=== PATIENT | male | born 1980 | race Native Hawaiian/Other Pacific Islander ===

== ENCOUNTER 2022-10-26 03:16 | Emergency (ER) | payer SELFPAY ==
[~2022-10-26] VITALS: Ht 165.1 cm; Wt 111.1 kg
--- NOTE | 2022-10-26 03:45 | ED General ---
General Stated Complaint: FEVER,COUGH,CONGESTION,SORE THROAT Source of Information: Patient Exam Limitations: No Limitations History of Present Illness Date Seen by Provider: Oct 26, 2022 Time Seen by Provider: 03:33 Initial Comments Here with report of fevers, chills, body aches, sore throat and cough. Did have 1 episode of vomiting with cough. Noticed all of this was worse tonight at work and so ended up having to leave. He came here for evaluation due to concerns of COVID or other detectable viral illnesses. Denies previous surgeries or other medical problems. He has not had anything for the aches. Currently afebrile. Denies nausea currently. Timing/Duration: 24 Hours Severity: Mild, Moderate Associated Systoms: Cough, Fever/Chills, Nausea/Vomiting Allergies and Home Medications Allergies Coded Allergies: No Known Drug Allergies (Unverified , 10/26/22) Patient Home Medication List Home Medication List Reviewed: Yes Review of Systems Review of Systems Constitutional: chills, fever EENTM: nose congestion, throat pain Respiratory: cough; No short of breath Gastrointestinal: nausea, vomiting Musculoskeletal: muscle pain Psychiatric/Neurological: Denies Headache Past Xpmutus-Ehewul-Ewkqyy Hx Patient Social History Tobacco Use?: No Use of E-Cig and/or Vaping dev: No Substance use?: No Alcohol Use?: No Past Medical History Surgeries: No Cardiac: No Neurological: No Genitourinary: No Family Medical History Reviewed Nursing Family Hx Physical Exam Vital Signs Vital Signs - First Documented 10/26/22 03:32 Temp 36.9 Pulse 104 Resp 20 B/P (MAP) 139/95 (110) Pulse Ox 96 O2 Delivery Room Air Capillary Refill : Height, Weight, BMI Height: '" Weight: lbs. oz. kg; BMI Method: General Appearance: No Apparent Distress, WD/WN HEENT: TMs Normal, Pharyngeal Erythema; No Tonsillar Exudate Neck: Non Tender, Supple Respiratory: Lungs Clear, Normal Breath Sounds Cardiovascular: Regular Rate, Rhythm, No Murmur Neurologic/Psychiatric: Alert, Oriented x3 Skin: Normal Color, Warm/Dry Progress/Results/Core Measures Suspected Sepsis SIRS Temperature: Pulse: Respiratory Rate: Blood Pressure / Mean: Results/Orders Lab Results Laboratory Tests Test 10/26/22 03:36 Range/Units Influenza Type A (RT-PCR) Not Detected Not Detecte Influenza Type B (RT-PCR) Not Detected Not Detecte SARS-CoV-2 RNA (RT-PCR) Not Detected Not Detecte Group A Streptococcus Screen NEGATIVE NEGATIVE My Orders Orders - JESSE COLEY MD Rapid Strep A Screen (10/26/22 03:39) Influenza A And B By Pcr (10/26/22 03:39) Covid 19 Inhouse Test (10/26/22 03:39) Vital Signs/I&O 10/26/22 03:32 Temp 36.9 Pulse 104 Resp 20 B/P (MAP) 139/95 (110) Pulse Ox 96 O2 Delivery Room Air Capillary Refill : Progress Note : Progress Note Seen and evaluated. We will go ahead and check rapid strep, flu and COVID test. Differential includes these 3+ other viral illness. He is currently afebrile and declines anything for nausea at this point. Monitor patient. 0443: Strep, flu and COVID are all negative. Likely viral upper respiratory infection of other etiology. Discharged home with return precautions. Patient verbalized understanding instructions and agreement with plan Departure Impression Primary Impression: Viral upper respiratory infection Disposition: 01 HOME, SELF-CARE Condition: Stable Departure-Patient Inst. Decision time for Depature: 03:44 Referrals: NO,LOCAL PHYSICIAN (PCP/Family) Primary Care Physician Patient Instructions: Viral Upper Respiratory Infection, Adult (DC) Add. Discharge Instructions: You may take Tylenol/acetaminophen 1000 mg every 6-8 hours as needed for fever or pain. You may take ibuprofen 600 mg every 8 hours as needed for fever or pain. Drink plenty of fluids and get plenty of rest. Return for worse pain, persistent fever, vomiting, weakness, breathing problems or other concerns as needed. If you have nasal congestion, you may use Afrin nasal spray or the generic, 12-hour relief, 2 sprays to each nostril twice daily for 3 days only and then stop. Do not use more than 3 days. Work/School Note: Work Release Form Date Seen in the Emergency Department: Oct 26, 2022 Return to Work: Oct 28, 2022 Restrictions: Return-No Fever (24hrs) JESSE COLEY MD Oct 26, 2022 03:45
[2022-10-26 04:52] VITALS: BP 128/89
== END 2022-10-26 04:52 | disposition home or self-care (01) ==
LOC: ER 03:21
DX: J06.9 Acute upper respiratory infection, unspecified (principal); Z20.822 Contact with and (suspected) exposure to COVID-19
CPT/HCPCS: 87430; 87636; 99283